=== PATIENT | female | born 1965 | race Caucasian/White ===

== ENCOUNTER → 2019-02-16 | Outpatient (CLI) | payer BC ==
[~2019-02-16] MED LIST: DIPH25TA29 PO; FAMO-119 PO; HYDR-3455 PO
--- NOTE | 2019-02-16 16:45 | Diagnostic Imaging Report ---
INDICATION: Pain and swelling. Three views were obtained. FINDINGS: The alignment is normal. There is no fracture or dislocation. The soft tissues are unremarkable. IMPRESSION: No acute fracture or dislocation. Dictated by: Dictated on workstation # [id number]
== END ==
LOC: RAD 16:21
PROVIDERS: ATTEND Nurse Practitioner Family
DX: M25.421 Effusion, right elbow (principal)
CPT/HCPCS: 73080

== ENCOUNTER → 2020-05-03 | Outpatient (CLI) | payer BC | LOC: CARD 14:54 | PROVIDERS: ATTEND Nurse Practitioner Family | DX: R07.9 Chest pain, unspecified (principal) | CPT/HCPCS: 93005 ==

== ENCOUNTER 2020-05-04 12:03 | Outpatient (RCR) | payer BC ==
[2020-05-17] MEDS ORDERED: ASPI-999 PO (10:13)
[2020-05-17] MEDS ORDERED: ASCO-262 PO (10:13)
[2020-05-17] MEDS ORDERED: NITR0.4T42 SL (10:13)
[2020-05-17] MEDS ORDERED: METO-351 PO (10:13)
== END 2020-08-02 | disposition home or self-care (01) ==
LOC: CARD 12:03
PROVIDERS: ATTEND Family Medicine
DX: R07.9 Chest pain, unspecified (principal); R00.2 Palpitations
CPT/HCPCS: 36415; 85379; 93225; 93226

== ENCOUNTER 2020-05-09 15:47 | Emergency (ER) | payer BC ==
[~2020-05-09] VITALS: Ht 167 cm; Wt 72.0 kg
[2020-05-09] MEDS ORDERED: LORazepam INJ 2 MG/ML (ATIVAN) VIAL IVP PRN (16:00)
[2020-05-09] MEDS ORDERED: ASPIRIN 81 MG CHEW (CHILDREN'S ASA) PO ONE (16:00)
--- NOTE | 2020-05-09 16:00 | ED Chest Pain ---
General Chief Complaint: Chest Pain Stated Complaint: CP Source: patient Exam Limitations: no limitations History of Present Illness Date Seen by Provider: May 09, 2020 Time Seen by Provider: 15:58 Initial Comments To ER with reports of chest pain. This is a left-sided chest tightness rated 3 out of 10 currently. This began while at rest at home. Her had a quadruple bypass and she believes she has a blockage in her heart. She saw her primary care who did an EKG and some outpatient labs. She states that her had normal labs prior to his bypass. She believes she needs a stress tests/cardiac catheterization. Timing/Duration: changing over time Severity/Quality: moderate Location: central Radiation: no radiation Activities at Onset: none ASA po ACCOUNTS RECEIVABLE COLLECTOR: No NTG SL ACCOUNTS RECEIVABLE COLLECTOR: No Associated Symptoms: No shortness of breath Allergies and Home Medications Allergies Coded Allergies: No Known Drug Allergies (Unverified , 06/03/15) Home Medications Diphenhydramine HCl 25 Mg Tablet, 50 MG PO ALLERGIES, (Reported) Famotidine 20 Mg Tablet, 20 MG PO BID Prescribed by: TABBY GOVEA on 08/07/16 1723 Patient Home Medication List Home Medication List Reviewed: Yes Review of Systems Review of Systems Constitutional: see HPI EENTM: No Symptoms Reported Respiratory: No Symptoms Reported Cardiovascular: See HPI, Chest Pain Gastrointestinal: See HPI Genitourinary: No Symptoms Reported Musculoskeletal: no symptoms reported Skin: no symptoms reported Psychiatric/Neurological: No Symptoms Reported Endocrine: No Symptoms Reported Hematologic/Lymphatic: No Symptoms Reported Past Tyuceaz-Mxhfur-Bdprhn Hx Patient Social History Recent Foreign Travel: No Contact w/Someone Who Travel: No Recent Hopitalizations: No Immunizations Up To Date Tetanus Booster (TDap): Unknown PED Vaccines UTD: No Seasonal Allergies Seasonal Allergies: Yes Past Medical History Abdominal, Gallbladder, Tubal Ligation Reproductive Disorders: No Sexually Transmitted Disease: No Fractures Family Medical History Heart Disease, Cancer, Diabetes, Hypertension Physical Exam Vital Signs Vital Signs - First Documented 05/09/20 15:51 Temp 37.1 Pulse 97 Resp 22 B/P (MAP) 142/67 (92) Pulse Ox 98 O2 Delivery Room Air Capillary Refill : Height, Weight, BMI Height: 5'6.00" Weight: 164lbs. 5.0oz. 74.353826fr; 25.0 BMI Method:Estimated General Appearance: No Apparent Distress, WD/WN, Anxious Respiratory: Lungs Clear, Normal Breath Sounds, No Accessory Muscle Use, No Respiratory Distress Cardiovascular: Regular Rate, Rhythm, Normal Peripheral Pulses Gastrointestinal: Non Tender, Soft Extremity: Normal Capillary Refill, Normal Inspection Neurologic/Psychiatric: Alert, Oriented x3 Skin: Normal Color, Warm/Dry Progress/Results/Core Measures Results/Orders Lab Results Laboratory Tests Test 05/09/20 16:00 05/09/20 17:55 Range/Units White Blood Count 6.6 4.3-11.0 10^3/uL Red Blood Count 4.85 4.35-5.85 10^6/uL Hemoglobin 14.9 11.5-16.0 G/DL Hematocrit 44 35-52 % Mean Corpuscular Volume 90 80-99 FL Mean Corpuscular Hemoglobin 31 25-34 PG Mean Corpuscular Hemoglobin Concent 34 32-36 G/DL Red Cell Distribution Width 13.1 10.0-14.5 % Platelet Count 291 130-400 10^3/uL Mean Platelet Volume 10.5 H 7.4-10.4 FL Neutrophils (%) (Auto) 49 42-75 % Lymphocytes (%) (Auto) 39 12-44 % Monocytes (%) (Auto) 9 0-12 % Eosinophils (%) (Auto) 3 0-10 % Basophils (%) (Auto) 1 0-10 % Neutrophils # (Auto) 3.3 1.8-7.8 X 10^3 Lymphocytes # (Auto) 2.6 1.0-4.0 X 10^3 Monocytes # (Auto) 0.6 0.0-1.0 X 10^3 Eosinophils # (Auto) 0.2 0.0-0.3 10^3/uL Basophils # (Auto) 0.0 0.0-0.1 10^3/uL Prothrombin Time 12.8 12.2-14.7 SEC INR Comment 0.9 0.8-1.4 Activated Partial Thromboplast Time 27 24-35 SEC D-Dimer <= 0.27 0.00-0.49 UG/ML Sodium Level 140 135-145 MMOL/L Potassium Level 3.5 L 3.6-5.0 MMOL/L Chloride Level 103 98-107 MMOL/L Carbon Dioxide Level 26 21-32 MMOL/L Anion Gap 11 5-14 MMOL/L Blood Urea Nitrogen 11 7-18 MG/DL Creatinine 0.70 0.60-1.30 MG/DL Estimat Glomerular Filtration Rate > 60 BUN/Creatinine Ratio 16 Glucose Level 102 70-105 MG/DL Calcium Level 9.4 8.5-10.1 MG/DL Corrected Calcium 8.5-10.1 MG/DL Magnesium Level 2.0 1.6-2.4 MG/DL Total Bilirubin 0.5 0.1-1.0 MG/DL Aspartate Amino Transf (AST/SGOT) 24 5-34 U/L Alanine Aminotransferase (ALT/SGPT) 26 0-55 U/L Alkaline Phosphatase 82 40-136 U/L Myoglobin 38.5 10.0-92.0 NG/ML Troponin I < 0.028 < 0.028 <0.028 NG/ML B-Type Natriuretic Peptide 13.1 <100.0 PG/ML Total Protein 7.8 6.4-8.2 GM/DL Albumin 4.6 H 3.2-4.5 GM/DL My Orders Orders - DONNIE AGUILLON MANUFACTURER REPRESENTATIVE Cbc With Automated Diff (05/09/20 15:49) Magnesium (05/09/20 15:49) Chest 1 View, Ap/Pa Only (05/09/20 15:49) Ekg Tracing (05/09/20 15:49) Comprehensive Metabolic Panel (05/09/20 15:49) Myoglobin Serum (05/09/20 15:49) Protime With Inr (05/09/20 15:49) Partial Thromboplastin Time (05/09/20 15:49) O2 (05/09/20 15:49) Monitor-Rhythm Ecg Trace Only (05/09/20 15:49) Lipid Panel (05/10/20 06:00) Ed Iv/Invasive Line Start (05/09/20 15:49) BNP (05/09/20 15:49) Troponin I (05/09/20 15:49) Aspirin Chewable Tablet (Baby Aspirin Ch (05/09/20 16:00) Lorazepam Injection (Ativan Injection) (05/09/20 16:00) Fibrin Degradation Products (05/09/20 16:00) Troponin I (05/09/20 18:00) Medications Given in ED Current Medications Medications Dose Ordered Sig/Radha Route Start Time Stop Time Status Last Admin Dose Admin Aspirin 324 mg ONCE ONCE PO 05/09/20 16:00 05/09/20 16:01 DC 05/09/20 16:08 324 MG Lorazepam 0.5 mg ONCE PRN IVP 05/09/20 16:00 05/09/20 16:08 0.5 MG Vital Signs/I&O 05/09/20 15:51 Temp 37.1 Pulse 97 Resp 22 B/P (MAP) 142/67 (92) Pulse Ox 98 O2 Delivery Room Air Departure Communication (Admissions) She states that she does have an appointment for a stress test this Saturday, 2 days from now. Impression Primary Impression: Chest pain Qualified Codes: R07.9 - Chest pain, unspecified Disposition: HOME, SELF-CARE Condition: Stable Departure-Patient Inst. Decision time for Depature: 18:32 Referrals: GILMAR CARRILLO MD FACP FACC CCDS Shivani CAMARGO MD, BASHAR J MD ORENDER, JACQUELINE S DO (PCP/Family) Primary Care Physician Patient Instructions: Chest Pain (DC) Add. Discharge Instructions: 1. Keep your appointment for the stress test on Saturday. Call one of the card iologist tomorrow to make an appointment to be seen for follow-up. Tell them you were seen in the emergency room tonight and were instructed to obtain follow-up preferably this week by whomever could see you soonest. All discharge instructions reviewed with patient and/or family. Voiced understanding. DONNIE AGUILLON APRN May 09, 2020 15:59
[2020-05-09 16:14] LABS: BASOPHILS % (AUTO) 1 % (0-10); EOSINOPHILS # (AUTO) 0.2 10^3/uL (0.0-0.3); EOSINOPHILS % (AUTO) 3 % (0-10); HEMATOCRIT 44 % (35-52); HEMOGLOBIN 14.9 G/DL (11.5-16.0); LYMPHOCYTES # (AUTO) 2.6 X 10^3 (1.0-4.0); LYMPHOCYTES % (AUTO) 39 % (12-44); MEAN CORPUSCULAR HEMOGLOBIN 31 PG (25-34); MEAN CORPUSCULAR HGB CONC 34 G/DL (32-36); MEAN CORPUSCULAR VOLUME 90 FL (80-99); MEAN PLATELET VOLUME 10.5 FL (7.4-10.4); MONOCYTES # (AUTO) 0.6 X 10^3 (0.0-1.0); MONOCYTES % (AUTO) 9 % (0-12); NEUTROPHILS # (AUTO) 3.3 X 10^3 (1.8-7.8); NEUTROPHILS % (AUTO) 49 % (42-75); PLATELET COUNT 291 10^3/uL (130-400); WHITE BLOOD COUNT 6.6 10^3/uL (4.3-11.0)
[2020-05-09 16:24] LABS: ALBUMIN 4.6 GM/DL (3.2-4.5)
[2020-05-09 16:25] LABS: CHLORIDE 103 MMOL/L (98-107); POTASSIUM 3.5 MMOL/L (3.6-5.0); SODIUM 140 MMOL/L (135-145)
[2020-05-09 16:26] LABS: CALCIUM 9.4 MG/DL (8.5-10.1)
[2020-05-09 16:27] LABS: GLUCOSE 102 MG/DL (70-105); TOTAL PROTEIN 7.8 GM/DL (6.4-8.2)
[2020-05-09 16:28] LABS: CARBON DIOXIDE 26 MMOL/L (21-32)
[2020-05-09 16:29] LABS: BILIRUBIN,TOTAL 0.5 MG/DL (0.1-1.0)
[2020-05-09 16:30] LABS: ALKALINE PHOSPHATASE 82 U/L (40-136)
[2020-05-09 16:31] LABS: GFR ESTIMATED > 60
[2020-05-09 16:32] LABS: BUN/CREATININE RATIO 16
[2020-05-09 16:33] LABS: ALANINE AMINOTRANSFERASE 26 U/L (0-55)
--- NOTE | 2020-05-09 16:37 | Diagnostic Imaging Report ---
INDICATION: Chest pain COMPARISON: 08/07/2016. FINDINGS: Single frontal view of the chest demonstrates normal heart size and pulmonary vascularity. The lungs are well aerated and clear. No large pleural effusion or pneumothorax is seen. The visualized osseous structures show no acute abnormalities. IMPRESSION: 1. No acute cardiopulmonary process. Dictated by: Dictated on workstation # [id number]
[2020-05-09 17:14] LABS: FIBRIN DEGRADATION PRODUCTS <= 0.27 UG/ML (0.00-0.49); INR 0.9 (0.8-1.4); PARTIAL THROMBOPLASTIN TIME 27 SEC (24-35); PROTHROMBIN TIME PATIENT 12.8 SEC (12.2-14.7)
[2020-05-09 18:39] VITALS: BP 122/70
== END 2020-05-09 18:39 | disposition home or self-care (01) ==
LOC: EDUNIT# 15:47 → ER 15:48
DX: R07.9 Chest pain, unspecified (principal); F41.9 Anxiety disorder, unspecified; Z82.49 Family history of ischemic heart disease and other diseases of the circulatory system; Z83.3 Family history of diabetes mellitus; Z80.9 Family history of malignant neoplasm, unspecified
CPT/HCPCS: 36415; 71045; 80053; 83735; 83874; 83880; 84484; 85025; 85379; 85610; 85730; 93005; 93041

== ENCOUNTER → 2020-05-11 | Outpatient (CLI) | payer BC | LOC: CARD 10:05 | PROVIDERS: ATTEND Family Medicine | DX: R07.9 Chest pain, unspecified (principal); R00.2 Palpitations | CPT/HCPCS: 93017 ==

== ENCOUNTER 2020-05-17 11:00 | Day surgery (SDC) | payer BC ==
[2020-05-17] VITALS (11 sets, daily range): BP systolic 110–130; BP diastolic 53–74
[~2020-05-17] VITALS: Ht 169 cm; Wt 73.6 kg
[2020-05-17 10:02] LABS: HEMOGLOBIN 13.7 g/dL (11.5-16.0); MEAN PLATELET VOLUME 10.4 fL (9.0-12.2); WHITE BLOOD COUNT 4.9 10^3/uL (4.3-11.0)
[2020-05-17 10:16] LABS: INR 0.9 (0.8-1.4); PROTHROMBIN TIME PATIENT 12.1 SEC (12.2-14.7)
[2020-05-17 10:24] LABS: ALANINE AMINOTRANSFERASE 21 U/L (0-55); ALBUMIN 4.2 GM/DL (3.2-4.5); ALKALINE PHOSPHATASE 68 U/L (40-136); BILIRUBIN,TOTAL 0.5 MG/DL (0.1-1.0); BUN/CREATININE RATIO 18; CALCIUM 8.9 MG/DL (8.5-10.1); CARBON DIOXIDE 27 MMOL/L (21-32); CHLORIDE 105 MMOL/L (98-107); CHOLESTEROL 238 MG/DL (< 200); CREATININE SERUM 0.74 MG/DL (0.60-1.30); GFR ESTIMATED > 60; GLUCOSE 88 MG/DL (70-105); HDL CHOLESTEROL 76 MG/DL (40-60); POTASSIUM 3.6 MMOL/L (3.6-5.0); SODIUM 141 MMOL/L (135-145); TRIGLYCERIDES 50 MG/DL (<150); VLDL CHOLESTEROL 10 MG/DL (5-40)
[~2020-05-17 11:00] MED LIST changes: +ASCO-262 PO; +ASPI-999 PO; +HEParin (CATH LAB) 2,000 ML IV ONE; +LIDOCAINE 1% INJ 20 ML 20 ML VIAL ONE; +METO-351 PO; +MIDAZOLAM 5 MG/5 ML (VERSED) VIAL ONE; +NITR0.4T42 SL; +NS IV 1000 ML 1,000 ML IV SCH; +NS IV 1000 ML 1,000 ML ONE; +fentaNYL INJECTION 100 MCG/2 ML AMP ONE
[2020-05-17] MEDS ORDERED: NS IV 1000 ML 1,000 ML IV SCH (11:22)
--- NOTE | 2020-05-17 11:22 | Cardiac Procedure Note-CS/ASA ---
Pre-Procedure Note Pre-Op Procedure Note H&P Reviewed The H&P was reviewed, patient examined and no changes noted. Date H&P Reviewed: May 17, 2020 Time H&P Reviewed: 10:50 Conscious Sedation Pre-Proced Time 10:50 ASA Score 3 For ASA 3 and 4: Consider anesthesia and medical clearance. Also, for patients with a history of failed moderate sedation consider anesthesia. Airway Lungs Heart ASA score ASA 1: a normal healthy patient ASA 2: a patient with a mild systemic disease (mid diabetes, controlled hypertension, obesity ASA 3: a patient with a severe systemic disease that limits activity (angina, COPD, prior Myocardial infarction) ASA 4: a patient with an incapacitating disease that is a constant threat to life (CHF, renal failure) ASA 5: a moribund patient not expected to survive 24 hrs. (ruptured aneurysm) ASA 6: a declared brain- patient whose organs are being harvested. For emergent operations, add the letter E after the classification Mallampati Classification Grade 2 Sedation Plan Analgesia, Amnesia, Plan communicated to team members, Discussed options with patient/fam, Discussed risks with patient/fam The patient is an appropriate candidate to undergo the planned procedure, sedation, and anesthesia. The patient immediately re-assessed prior to indication. GILMAR CARRILLO MD FACP FAC CCDS May 17, 2020 11:22
--- NOTE | 2020-05-17 11:27 | Discharge Inst-Cardiology ---
Discharge Inst-Cardiac Discharge Medications Continued Medications: Ascorbate Calcium (Vitamin C) 500 Mg Tablet 500 MG PO DAILY, TAB Diphenhydramine HCl (Diphenhydramine HCl) 25 Mg Tablet 25 MG PO ALLERGIES PRN for CONGESTION, TAB Discontinued Medications: Aspirin (Aspirin) 81 Mg Tab.chew 81 MG PO DAILY, TAB Metoprolol Succinate (Toprol Xl) 25 Mg Tab.er.24h 25 MG PO DAILY, TAB Nitroglycerin (Nitroglycerin) 0.4 Mg Tab.subl 0.4 MG SL, #24 GILMAR CHARLES MD FACP FACC CCDS May 17, 2020 11:27
--- NOTE | 2020-05-17 11:28 | Discharge Inst-Post CATH ---
Discharge Inst-CATH/EP Post Cardiac Cath/EP D/C Inst Follow Up/Plan F/u with Dr Hurd in 2 weeks ACTIVITY * Go Home directly and rest. * Limit activity of the leg (or wrist if it was used) for 7 days including aerobics, swimming, jogging, bicycling, etc. * Restrict stair-climbing for 7 days if possible, if not, climb up with your non-cath leg, then bring together on the same step. * Avoid lifting, pushing, pulling or excessive movement of the affected e xtremity for 7 days. * Customary sexual activity may be resumed after 2 days-use caution not to use a position that strains or causes pain to the affected extremity. * No driving for 24 hours. * NO SMOKING. * Avoid straining for bowel movements for 7 days. * Gentle walking on level ground is allowed. * Returning to work will depend on the type of procedure and the results. Your doctor will discuss this with you. CALL YOUR DOCTOR FOR ANY OF THE FOLLOWING: *If bleeding from the puncture site occurs- Apply gentle pressure to site with clean cloth and call your doctor or EMS. * If a knot or lump forms under the skin, increases in size, or causes pain. * If bruising appears to be worsening or moving further down your leg instead of disappearing. * Temperature above 101 F. CARE OF YOUR GROIN INCISION; * Bruising or purple discoloration of the skin near the puncture site is common. * You may shower only, no bathtub bathing for 5 days. Be careful to avoid slipping as your leg may feel stiff. * If a closure device was used on your femoral artery, please see the attached guide regarding care of the device and your leg. * Leave dressing on FOR 24 hours. CARE OF YOUR WRIST INCISION; * Bruising or purple discoloration of the skin near the puncture site is common. * You may shower. * DO NOT submerge wrist. * Leave dressing on FOR 24 hours. GILMAR HURD MD FACP FAC CCDS May 17, 2020 11:28
[2020-05-17] MEDS ORDERED: PATIENT MAY USE OWN MEDS, ALL PO SCH (11:30)
--- NOTE | 2020-05-17 12:32 | CARDIAC CATHETERIZATION ---
DATE OF SERVICE: 05/17/2020 CARDIAC CATHETERIZATION REPORT INDICATION FOR PROCEDURE: This is a 55-year-old lady, who has had new onset of chest discomfort and that is suggestive of angina. Symptoms are relieved with sublingual nitroglycerin after being brought on with exertion. Cardiac catheterization was carried out today after having obtained an informed consent. DESCRIPTION OF PROCEDURE: She was brought to the cardiac catheterization laboratory in a fasting state. Right groin was prepared and draped in the usual sterile fashion. Lidocaine 1% was used for local anesthesia. Modified Seldinger technique was used to advance a 5-Luxembourger sheath in the right femoral artery, 5-Luxembourger JL4 catheter for left coronary angiography, 5-Luxembourger JR4 catheter for right coronary angiography, 5-Luxembourger pigtail catheter was used for left heart catheterization and left ventricular angiography. Pigtail catheter was pulled back to the aortic root and aortic root angiography was performed. Pigtail was removed. Angiography of the right femoral artery was carried out through the sheath. Mynx was used to achieve hemostasis. She tolerated the procedure well. HEMODYNAMICS: Left ventricular end-diastolic pressure following coronary angiography was 14 mmHg. There was no significant pressure gradient on pullback across the aortic valve. Ascending aortic pressure was 107/65 with a mean of 83 mmHg. CORONARY ANGIOGRAPHY: Left main coronary artery, left anterior descending artery, left circumflex artery and right coronary artery do not exhibit angiographically significant disease. Right coronary artery is dominant. LEFT VENTRICULAR ANGIOGRAPHY: Left ventricular angiography was carried out in the [place] projection. Global left ventricular systolic function normal. No regional wall motion abnormality was seen in this view. Left ventricular ejection fraction is approximately 60%. AORTIC ROOT ANGIOGRAPHY: Aortic root angiography did not indicate any aortic root dissection or aneurysm. Coronary arteries were again seen and did not show significant disease. Aortic valve leaflets show good leaflet excursion. No significant aortic regurgitation is seen. CONCLUSIONS: 1. No angiographically significant coronary artery disease. 2. Normal global left ventricular systolic function. 3. Left ventricular end-diastolic pressure was 14 mmHg. DISCUSSION AND RECOMMENDATIONS: Based on the results of the study, chest discomfort does not appear to be of coronary origin. Continuing risk factor modification is advised. Outpatient followup is advised. Job ID: [id number] DocumentID: [id number] Dictated Date: 05/17/2020 11:32:51 Go Go Dancer Date: 05/17/2020 12:32:02 Dictated By: GILMAR CARRILLO MD, MA, FACP, FACC,
== END 2020-05-17 14:55 | disposition home or self-care (01) ==
LOC: CATH 11:00 → SDC 11:48 → CATH 14:55
PROVIDERS: ATTEND Internal Medicine Cardiovascular Disease
DX: R07.89 Other chest pain (principal); R00.2 Palpitations; Z82.49 Family history of ischemic heart disease and other diseases of the circulatory system; Z79.82 Long term (current) use of aspirin; Z79.899 Other long term (current) drug therapy; Z88.5 Allergy status to narcotic agent; Z11.2 Encounter for screening for other bacterial diseases
CPT/HCPCS: 80053; 80061; 85027; 85610; 85730; 87081; 93458; 93567; C1760; C1894; 36415

== ENCOUNTER → 2021-05-11 | Outpatient (CLI) | payer BC ==
[~2021-05-11] MED LIST changes: -HEParin (CATH LAB) 2,000 ML IV ONE; -LIDOCAINE 1% INJ 20 ML 20 ML VIAL ONE; -MIDAZOLAM 5 MG/5 ML (VERSED) VIAL ONE; -NS IV 1000 ML 1,000 ML IV SCH; -NS IV 1000 ML 1,000 ML ONE; -fentaNYL INJECTION 100 MCG/2 ML AMP ONE
[2021-05-11 09:53] LABS: BASOPHILS % (AUTO) 1 % (0-10); EOSINOPHILS # (AUTO) 0.2 10^3/uL (0.0-0.3); EOSINOPHILS % (AUTO) 5 % (0-10); HEMATOCRIT 45 % (35-52); HEMOGLOBIN 14.8 g/dL (11.5-16.0); LYMPHOCYTES # (AUTO) 1.5 10^3/uL (1.0-4.0); LYMPHOCYTES % (AUTO) 33 % (12-44); MEAN CORPUSCULAR HEMOGLOBIN 31 pg (25-34); MEAN CORPUSCULAR HGB CONC 33 g/dL (32-36); MEAN CORPUSCULAR VOLUME 94 fL (80-99); MEAN PLATELET VOLUME 10.3 fL (9.0-12.2); MONOCYTES # (AUTO) 0.5 10^3/uL (0.0-1.0); MONOCYTES % (AUTO) 11 % (0-12); NEUTROPHILS # (AUTO) 2.3 10^3/uL (1.8-7.8); NEUTROPHILS % (AUTO) 50 % (42-75); PLATELET COUNT 252 10^3/uL (130-400); WHITE BLOOD COUNT 4.6 10^3/uL (4.3-11.0)
[2021-05-11 10:31] LABS: BASOPHILS % (MANUAL) 1 %; EOSINOPHILS % (MANUAL) 4 %; LYMPHOCYTES % (MANUAL) 23 %; MONOCYTES % (MANUAL) 8 %; NEUTROPHILS % (MANUAL) 50 %; RBC MORPH NORMAL; REACTIVE LYMPHOCYTES 14 %
[2021-05-11 10:38] LABS: ALBUMIN 4.2 GM/DL (3.2-4.5); BILIRUBIN,TOTAL 0.5 MG/DL (0.1-1.0); CALCIUM 9.5 MG/DL (8.5-10.1); CREATININE SERUM 0.7 MG/DL (0.60-1.30); FREE T4 (FREE THYROXINE) 0.91 NG/DL (0.70-1.48); POTASSIUM 3.9 MMOL/L (3.6-5.0); TOTAL PROTEIN 7.3 GM/DL (6.4-8.2)
== END ==
LOC: LAB 09:32
PROVIDERS: ATTEND Family Medicine
DX: Z00.01 Encounter for general adult medical examination with abnormal findings (principal); Z82.49 Family history of ischemic heart disease and other diseases of the circulatory system
CPT/HCPCS: 36415; 80053; 80061; 84439; 84443; 85007; 85027; 86141

== ENCOUNTER → 2021-06-05 | Outpatient (CLI) | payer BC ==
--- NOTE | 2021-06-05 17:56 | Diagnostic Imaging Report ---
EXAM: Digital mammogram bilateral screening COMPARISON: This study was compared to the prior exam of 10/05/2015. At this time there are no current complaints. The current study was also evaluated with a Computer Aided Detection (CAD) system. FINDINGS: The fibroglandular tissue in both breasts is heterogeneously dense. This does limit the sensitivity of this exam. Overall, there does not appear to have been any significant change when compared to the prior study. No primary or secondary sign of malignancy is noted. IMPRESSION: 1. There is no radiographic evidence for malignancy. 2. The patient should have her annual bilateral screening mammogram on schedule in May of 2022. ACR category 1 ACR BI-RADS Category 1: Negative. Result letter will be mailed to the patient. Note: At least 10% of breast cancer is not imaged by mammography. Dictated by: Dictated on workstation # [id number]
== END ==
LOC: RAD 15:15
PROVIDERS: ATTEND Family Medicine
DX: Z12.31 Encounter for screening mammogram for malignant neoplasm of breast (principal)
CPT/HCPCS: 77063; 77067

== ENCOUNTER 2022-03-05 21:41 | Emergency (ER) | payer BC ==
[~2022-03-05] VITALS: Ht 170.1 cm; Wt 77.1 kg
[2022-03-05] MEDS ORDERED: morphine INJ 10 MG/ML 1ML (SYR OR VIAL) IVP STA (21:56)
[2022-03-05] MEDS ORDERED: KETOROLAC 30 MG/ML VIAL IVP ONE (22:00)
[2022-03-05] MEDS ORDERED: fentaNYL INJ 100 MCG/2 ML AMP IVP ONE ×2 (22:30→23:45)
[2022-03-05] MEDS ORDERED: RX-OXYCODONE/APAP 5-325 MG #4 TAB PK PO PRN (23:45)
[2022-03-05] MEDS ORDERED: BACITRACIN OINTMENT 28 GM TUBE ONE (23:48)
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
[2022-03-06] MEDS ORDERED: RX-OXYCODONE/APAP 5-325 MG #4 TAB PK PO PRN (01:00)
[2022-03-06] MEDS ORDERED: PROMETHAZINE INJ 25 MG/ML (PHENERGAN) AMP IVP ONE (01:00)
[2022-03-06] MEDS ORDERED: OXYC1TAB87 PO (01:01)
[2022-03-06 01:13] VITALS: BP 142/79
[2022-03-06] MEDS ORDERED: BACITRACIN OINTMENT 28 GM TUBE TOP SCH (09:00)
== END 2022-03-06 01:13 | disposition home or self-care (01) ==
LOC: EDUNIT# 21:41 → ER 21:42
DX: T23.201A Burn of second degree of right hand, unspecified site, initial encounter (principal); T23.202A Burn of second degree of left hand, unspecified site, initial encounter; T23.231A Burn of second degree of multiple right fingers (nail), not including thumb, initial encounter; Z28.310 Unvaccinated for COVID-19; X10.1XXA Contact with hot food, initial encounter; X19.XXXA Contact with other heat and hot substances, initial encounter

== ENCOUNTER → 2022-05-29 | Outpatient (CLI) | payer BC ==
[~2022-05-29] MED LIST changes: +OXYC1TAB87 PO
--- NOTE | 2022-05-29 13:27 | Diagnostic Imaging Report ---
INDICATION: CELLULITIS OF LEFT LOWER LIMB TECHNIQUE: Multiple real-time grayscale images were obtained over the left lower extremity in various projections, bilaterally. Additional duplex Doppler and color Doppler images were also obtained. CORRELATION STUDY: None FINDINGS: Color and grayscale sonographic images demonstrate no intraluminal defect within the visualized portion of the common femoral, superficial femoral and/or popliteal veins to suggest thrombus formation. These vessels demonstrate normal response to compression and augmentation. No soft tissue fluid collection. IMPRESSION: 1. Negative for deep venous thrombosis of the left leg. Dictated by: Dictated on workstation # [id number]
== END ==
LOC: RAD 12:24
PROVIDERS: ATTEND Registered Nurse Critical Care Medicine
DX: L03.116 Cellulitis of left lower limb (principal); G43.909 Migraine, unspecified, not intractable, without status migrainosus; J45.31 Mild persistent asthma with (acute) exacerbation; J45.998 Other asthma; M79.89 Other specified soft tissue disorders

== ENCOUNTER 2022-06-06 04:49 | Emergency (ER) | payer BC ==
[~2022-06-06] VITALS: Ht 167 cm; Wt 77.1 kg
--- NOTE | 2022-06-06 04:59 | ED General ---
General Stated Complaint: FEVER,MARION,NAUSEA History of Present Illness Date Seen by Provider: Jun 06, 2022 Time Seen by Provider: 04:58 Initial Comments 57-year-old female with no significant PMH except for cholecystectomy, is here with complaints of diffuse abdominal pain, fever and chills, and nausea and vomiting for the past 3 days. No known sick contacts. Denies diarrhea, chest pain, palpitations, SOB, respiratory symptoms. Patient has not been able to tolerate oral intake. (ABDIFATAH MUÑOZ MD) Allergies and Home Medications Allergies Coded Allergies: codeine (Verified Allergy, Mild, Hives, 05/17/20) Patient Home Medication List Home Medication List Reviewed: Yes (ABDIFATAH MUÑOZ MD) Duloxetine HCl (Duloxetine HCl) 30 Mg Capsule., (Reported) Entered as Reported by: JESSY JERNIGAN on 06/06/22500 Last Action: New Order [Smz-Tmp] , (Reported) Entered as Reported by: JESSY JERNIGAN on 06/06/22500 Last Action: New Order Discontinued Medications Ascorbate Calcium (Vitamin C) 500 Mg Tablet, 500 MG PO DAILY, (Reported) Discontinued Reason: No Longer Taking Entered as Reported by: CORNELIUS QUINTANA on 05/17/20 1013 Last Action: Discontinued Diphenhydramine HCl (Diphenhydramine HCl) 25 Mg Tablet, 25 MG PO ALLERGIES PRN for CONGESTION, (Reported) Discontinued Reason: No Longer Taking Entered as Reported by: NOEL TAMEZ on 08/07/16 0925 Last Action: Discontinued Oxycodone HCl/Acetaminophen (Percocet 5-325 mg Tablet) 1 Each Tablet, 1-2 TAB PO Q4H PRN for PAIN-BREAKTHROUGH Discontinued Reason: No Longer Taking Prescribed by: PADMINI ROJAS on 03/06/22 010 Last Action: Discontinued Review of Systems Review of Systems Constitutional: chills, fever EENTM: no symptoms reported Respiratory: no symptoms reported Cardiovascular: no symptoms reported Gastrointestinal: abdominal pain, loss of appetite, nausea, vomiting Genitourinary: no symptoms reported Musculoskeletal: no symptoms reported Skin: no symptoms reported Psychiatric/Neurological: No Symptoms Reported Hematologic/Lymphatic: No Symptoms Reported Immunological/Allergic: no symptoms reported (ABDIFATAH MUÑOZ MD) Past Ypmeado-Rxzhvz-Yudyns Hx Immunizations Up To Date Tetanus Booster (TDap): Unknown PED Vaccines UTD: No (ABDIFATAH MUÑOZ MD) Seasonal Allergies Seasonal Allergies: Yes (ABDIFATAH MUÑOZ MD) Past Medical History Surgeries: Yes (urethral dilation) Abdominal, Gallbladder, Tubal Ligation Respiratory: Yes Asthma Currently Using CPAP: No Cardiac: Yes (large varicosity over the right knee) Neurological: No Reproductive Disorders: No Sexually Transmitted Disease: No Genitourinary: No Gastrointestinal: No Musculoskeletal: Yes Fractures Endocrine: No HEENT: No Cancer: No Psychosocial: No Integumentary: No Blood Disorders: No (ABDIFATAH MUÑOZ MD) Family Medical History Heart Disease, Cancer, Diabetes, Hypertension (ABDIFATAH MUÑOZ MD) Physical Exam Vital Signs Vital Signs - First Documented 06/06/22 04:56 Temp 36.8 Pulse 67 Resp 18 B/P (MAP) 162/97 (118) Pulse Ox 98 O2 Delivery Room Air (ELLA MANNING MD) Vital Signs Capillary Refill : (ABDIFATAH MUÑOZ MD) Height, Weight, BMI Height: 5'6.00" Weight: 164lbs. 5.0oz. 74.675021ib; 26.00 BMI Method:Estimated General Appearance: Mild Distress HEENT: PERRL/EOMI, Normal ENT Inspection Neck: Full Range of Motion, Normal Inspection, Non Tender, Supple Respiratory: Lungs Clear, Normal Breath Sounds Cardiovascular: Regular Rate, Rhythm Gastrointestinal: Normal Bowel Sounds, No Organomegaly, Soft, Tenderness (Diffuse abdominal tenderness) Back: Normal Inspection, No CVA Tenderness Neurologic/Psychiatric: Alert, Oriented x3 Skin: Cool, Other (dry mucous membranes and mild tenting of skin) Lymphatic: No Adenopathy (ABDIFATAH MUÑOZ MD) Focused Exam Sepsis Stage: Severe Sepsis Possible Source: GI Tract/Intra-Abdominal Lactate Level 06/06/22 05:37: Lactic Acid Level 3.86*H 06/06/22 07:26: Lactic Acid Level 3.31*H (ELLA MANNING MD) Time of Focused Exam: 06:22 Respiratory: Lungs Clear, Normal Breath Sounds, No Accessory Muscle Use, No Respiratory Distress Cardiovascular: Regular Rate, Rhythm Capillary Refill: Less Than 3 Seconds Peripheral Pulses: 1+ Radial Pulses (R), 1+ Radial Pulses (L) Skin: cool, pallor Lactic Acid Level Laboratory Tests Test 06/06/22 05:37 06/06/22 07:26 Lactic Acid Level 3.86 MMOL/L (0.50-2.00) *H 3.31 MMOL/L (0.50-2.00) *H (ELLA MANNING MD) Within 3hrs of presentation: Admin fluids, Admin 30ml/kg IBW due to BMI>30, Blood cultures prior to ABX's, Focus exam, Lactate level (ELLA MANNING MD) Progress/Results/Core Measures Suspected Sepsis SIRS Temperature: Pulse: Respiratory Rate: Laboratory Tests 06/06/22 05:00: White Blood Count 20.0H Blood Pressure / Mean: Laboratory Tests 06/06/22 05:00: Creatinine 0.80, Platelet Count 266, Total Bilirubin 0.6 (ABDIFATAH MUÑOZ MD) Results/Orders Lab Results Laboratory Tests Test 06/06/22 05:00 06/06/22 05:01 06/06/22 05:25 06/06/22 05:37 Range/Units White Blood Count 20.0 H 4.3-11.0 10^3/uL Red Blood Count 4.67 3.80-5.11 10^6/uL Hemoglobin 14.4 11.5-16.0 g/dL Hematocrit 42 35-52 % Mean Corpuscular Volume 90 80-99 fL Mean Corpuscular Hemoglobin 31 25-34 pg Mean Corpuscular Hemoglobin Concent 34 32-36 g/dL Red Cell Distribution Width 12.6 10.0-14.5 % Platelet Count 266 130-400 10^3/uL Mean Platelet Volume 10.6 9.0-12.2 fL Immature Granulocyte % (Auto) 1 % Neutrophils (%) (Auto) 73 42-75 % Lymphocytes (%) (Auto) 19 12-44 % Monocytes (%) (Auto) 7 0-12 % Eosinophils (%) (Auto) 0 0-10 % Basophils (%) (Auto) 0 0-10 % Neutrophils # (Auto) 14.7 H 1.8-7.8 10^3/uL Lymphocytes # (Auto) 3.8 1.0-4.0 10^3/uL Monocytes # (Auto) 1.3 H 0.0-1.0 10^3/uL Eosinophils # (Auto) 0.0 0.0-0.3 10^3/uL Basophils # (Auto) 0.1 0.0-0.1 10^3/uL Immature Granulocyte # (Auto) 0.1 0.0-0.1 10^3/uL Neutrophils % (Manual) 77 % Lymphocytes % (Manual) 17 % Monocytes % (Manual) 6 % Blood Morphology Comment NORMAL Sodium Level 131 L 135-145 MMOL/L Potassium Level 3.8 3.6-5.0 MMOL/L Chloride Level 94 L 98-107 MMOL/L Carbon Dioxide Level 25 21-32 MMOL/L Anion Gap 12 5-14 MMOL/L Blood Urea Nitrogen 11 7-18 MG/DL Creatinine 0.80 0.60-1.30 MG/DL Estimat Glomerular Filtration Rate 86 BUN/Creatinine Ratio 14 Glucose Level 208 H 70-105 MG/DL Calcium Level 10.0 8.5-10.1 MG/DL Corrected Calcium 9.8 8.5-10.1 MG/DL Magnesium Level 2.1 1.6-2.4 MG/DL Total Bilirubin 0.6 0.1-1.0 MG/DL Aspartate Amino Transf (AST/SGOT) 29 5-34 U/L Alanine Aminotransferase (ALT/SGPT) 39 0-55 U/L Alkaline Phosphatase 82 40-136 U/L Total Protein 7.6 6.4-8.2 GM/DL Albumin 4.3 3.2-4.5 GM/DL Lipase 46 8-78 U/L Influenza Type A (RT-PCR) Not Detected Not Detecte Influenza Type B (RT-PCR) Not Detected Not Detecte SARS-CoV-2 RNA (RT-PCR) Not Detected Not Detecte Urine Color YELLOW Urine Clarity SL CLOUDY Urine pH 6.0 5-9 Urine Specific [place] >=1.030 1.016-1.022 Urine Protein 1+ H NEGATIVE Urine Glucose (UA) NEGATIVE NEGATIVE Urine Ketones 1+ H NEGATIVE Urine Nitrite NEGATIVE NEGATIVE Urine Bilirubin NEGATIVE NEGATIVE Urine Urobilinogen 1.0 < = 1.0 MG/DL Urine Leukocyte Esterase NEGATIVE NEGATIVE Urine RBC (Auto) NEGATIVE NEGATIVE Urine RBC NONE /HPF Urine WBC NONE /HPF Urine Squamous Epithelial Cells 0-2 /HPF Urine Crystals NONE /LPF Urine Bacteria NEGATIVE /HPF Urine Casts PRESENT /LPF Urine Hyaline Casts 0-2 H /LPF Urine Mucus LARGE H /LPF Urine Culture Indicated NO Urine Opiates Screen NEGATIVE NEGATIVE Urine Oxycodone Screen NEGATIVE NEGATIVE Urine Methadone Screen NEGATIVE NEGATIVE Urine Propoxyphene Screen NEGATIVE NEGATIVE Urine Barbiturates Screen NEGATIVE NEGATIVE Ur Tricyclic Antidepressants Screen NEGATIVE NEGATIVE Urine Phencyclidine Screen NEGATIVE NEGATIVE Urine Amphetamines Screen NEGATIVE NEGATIVE Urine Methamphetamines Screen NEGATIVE NEGATIVE Urine Benzodiazepines Screen NEGATIVE NEGATIVE Urine Cocaine Screen NEGATIVE NEGATIVE Urine Cannabinoids Screen NEGATIVE NEGATIVE Lactic Acid Level 3.86 *H 0.50-2.00 MMOL/L Test 06/06/22 07:26 Range/Units Lactic Acid Level 3.31 *H 0.50-2.00 MMOL/L (ELLA MANNING MD) My Orders Orders - ELLA MANNING MD Ns Iv 1000 Ml (Sodium Chloride 0.9%) (06/06/22 06:30) Fentanyl Inj (Sublimaze Injection) (06/06/22 06:30) Piperacillin Sodium/Tazobactam (Zosyn Vi (06/06/22 07:00) Type And Screen (06/06/22 07:05) Iohexol Injection (Omnipaque 350 Mg/Ml 1 (06/06/22 07:15) Received Contrast (Hold Metformin- Contr (06/06/22 07:15) Ns (Ivpb) (Sodium Chloride 0.9% Ivpb Bag (06/06/22 07:15) Catheter(Urinary) Insert & Ass 03,15 (06/06/22 07:52) Lidocaine 2% (Urojet) (Xylocaine Urojet) (06/06/22 08:00) (ELLA MANNING MD) Medications Given in ED Current Medications Medications Dose Ordered Sig/Radha Route Start Time Stop Time Status Last Admin Dose Admin Fentanyl Citrate 50 mcg ONCE ONCE IVP 06/06/22 05:45 06/06/22 05:46 DC 06/06/22 05:44 50 MCG Fentanyl Citrate 50 mcg ONCE ONCE IVP 06/06/22 06:30 06/06/22 06:31 DC 06/06/22 06:35 50 MCG Iohexol 100 ml ONCE ONCE IV 06/06/22 07:15 06/06/22 07:25 DC 06/06/22 07:10 80 ML Ondansetron HCl 4 mg ONCE ONCE IVP 06/06/22 05:15 06/06/22 05:16 DC 06/06/22 05:09 4 MG Piperacillin Sod/ Tazobactam Sod 4.5 gm/Sodium Chloride 100 ml @ 200 mls/hr ONCE ONCE IV 06/06/22 07:00 06/06/22 07:29 DC 06/06/22 07:20 200 MLS/HR Sodium Chloride 100 ml ONCE ONCE IV 06/06/22 07:15 06/06/22 07:25 DC 06/06/22 07:10 80 ML (ELLA MANNING MD) Vital Signs/I&O 06/06/22 04:56 Temp 36.8 Pulse 67 Resp 18 B/P (MAP) 162/97 (118) Pulse Ox 98 O2 Delivery Room Air (ELLA MANNING MD) Vital Signs/I&O Capillary Refill : (ABDIFATAH MUÑOZ MD) Progress Note : Progress Note 1. ABDOMINAL PAIN: - CT ABD & PELVIS: - CBC: Elevated WBC: 20 with a left shift - Lactic acid: - Lipase negative - Blood cultures sent - COVID test/ Rapid Flu Test - Zofran 4mg iv/ Toradol 15mg iv/ Fentanyl 50mcg iv 2. DEHYDRATION DUE TO GI LOSS/ MILD HYPONATREMIA: - CMP unremarkable except for mild hyponatremia - NS IVF bolus - Will sign out pt to Dr Manning for follow up of imaging and remaining labs (ABDIFATAH MUÑOZ MD) Progress Note #1: Time: 06:23 Progress Note Patient care assumed at shift change. 57-year-old female who presents to the emergency room with less than 24 hours of severe diffuse abdominal pain, nausea vomiting. Started feeling sick 2 days ago. Pain started last night. She had a normal bowel movement this morning. Nonblack nonbloody. No dysuria, urgency or frequency. She states she has vomited multiple times and has had dry heaving. She had previous cholecystectomy 5 years ago. She is not currently having menstrual cycles. She has received normal saline, Toradol, Zofran and fentanyl. Initial blood pressure at my evaluation in the upper 80s mid 90s systolic. She is not tachycardic. Resting comfortably on her left side although complains of significant pain. Gen: alert and oriented; BP soft with systolic in the 80-90's CV: RR Chest: no resp distress Abdomen: DISTENDED, HYPOACTIVE BS; diffusely tender with involuntary guarding Ext: MAEW Skin: pale Assessment: likely perforated viscous or other surgical pathology. she has a significant leukocytosis; chem WNL with slightly elevated glucose' significant lactic acidosis Plan: further fluid boluses, more pain control and to CT to delineate pathology Progress Note #2: Time: 07:45 Progress Note 0720 spoke with Radiologist - Dr Hernandez with [facility] - large pseudoaneurysmal bleed in the abdomen, likely from gastroduodenal artery; extensive retroperitoneal hemmorhage with 15 x 8 x 17cm hematoma; intraperitoneal blood Called off our team, in favor of transfer to where they have IR ca pabilities/vascular specialty available; Patient's current BP 109 systolic; HR 80's. Patient is somewhat pale, but alert and oriented. Type and screen ordered. Will likely need to give 1u PRBC prior to transport due to hemorrhagic shock (BP had been in the 80's sys). I spoke with the patient and her . She consents to transfer. [facility] on standby, Awaiting call back from for final acceptance. (ELLA MANNING MD) Diagnostic Imaging Diagonstic Imaging: CT Plain Films/CT/US/NM/MRI: abdomen (ABDIFATAH MUÑOZ MD) Diagonstic Imaging: CT Comments NAME: CAD[facility] REC#: [id number] PT STATUS: REG ER : 1965 PHYSICIAN: ABDIFATAH MUÑOZ MD ADMIT DATE: 06/06/22/ER Draft Date of Exam:06/06/22 CT ABDOMEN/PELVIS W PROCEDURE: CT abdomen and pelvis with contrast. TECHNIQUE: Multiple contiguous axial images were obtained through the abdomen and pelvis after administration of intravenous contrast. Auto Exposure Controls were utilized during the CT exam to meet ALARA standards for radiation dose reduction. All CT scans use one or more of the following dose optimizing techniques: automated exposure control, MA and/or KvP adjustment based on patient size and exam type or iterative reconstruction. INDICATION: Abdominal pain. No priors. FINDINGS: There is presumed hemorrhagic infiltration along the retroperitoneal and mesenteric midline fat, within the epicenter. There is a bilobed arterial enhancing structure believed to be presumed pseudoaneurysm measuring 1.4 cm in axial plane by 2 cm cephalocaudal best seen on axial image 75 and coronal image 35. This is likely but inconclusively off the gastroduodenal but could be jejunal branch off the SMA. There is no gastric outlet obstruction. The proximal duodenum is dilated, distorted and effaced by the presumed hematoma this mass effect but no outlet obstruction. The pancreatic neck body and tail unremarkable. The head, however is somewhat thickened as well as distorted by the adjacent blood product. Findings suspicious for hemorrhage from partially ruptured pseudoaneurysm in the setting of either peptic ulcer disease or pancreatitis suspected. There is only a small amount of pelvic intraperitoneal free fluid. The suspected hematoma in aggregate measures roughly 14 x 8 cm in axial plane and extends 17 cm cephalocaudal. The aorta is unremarkable. The celiac and proximal SMA unremarkable. No thrombus. There are few noninflamed diverticula of the sigmoid colon. There is no ileus or bowel obstruction. Unobstructed kidneys normal. Perihepatic and perisplenic free fluid likely hemoperitoneum noted. There are few scattered low-density hepatic foci believed cystic. Adrenal glands unremarkable. IMPRESSION: 1. Very large central abdominal predominantly retroperitoneal hemorrhage with a small amount of hemoperitoneum. Central within this hematoma is a bilobed irregular pseudoaneurysm presumed incompletely contained arterial source unclear but likely the gastroduodenal but may also be off a jejunal branch of the SMA. No outlet obstruction, however there is thickening, irregularity and distortion of the proximal duodenum and this may be the source of the primary pathology. The pancreatic head at the epicenter of the process as well and sequelae of pancreatitis could not be excluded. 2. Critical findings relayed by phone to the Emergency Room at time of dictation. Dictated on workstation # [id number] Dict: 06/06/22 0714 Trans: 06/06/22 0749 [id number] Interpreted by: ROB HERNANDEZ Electronically signed by: (ELLA MANNING MD) Critical Care Note Critical Care Start Time: 06:25 Total Time (minutes) 60min critical care time in the eval and management of this patient with an acute abdomen - evidence of active bleeding in the abdomen, management of hemorrhagic shock, fluid and blood replacement, continuous monitoring, discussion with our surgeon, discussion with radiologist; review and interpretation of labs/imaging; discussion with [facility] and discussion with patient and family (ELLA MANNING MD) Departure Impression Primary Impression: Hemorrhagic shock Additional Impression: Intra abdominal hemorrhage Disposition: XFER SHT-TRM HOSP Condition: Critical Transfer Transfer Reason: Exceeds level of care Time Spoke to Accepting Phy: 07:58 Transfer Progress Notes Accepted by Dr Gab Burgess; to the SICU - [facility] bed "[facility]" Transfer Facility: [facility] Method of Transfer: Air (ELLA MANNING MD) Departure-Patient Inst. Referrals: TABBY GOVEA DO (PCP/Family) Primary Care Physician Copy Copies To 1: TABBY GOVEA SNEHA L MD Jun 06, 2022 04:59 ELLA MANNING MD Jun 06, 2022 06:27
[2022-06-06] MEDS ORDERED: DULO30CA49 (05:01)
[2022-06-06] MEDS ORDERED: SMZ-TMP (05:01)
[2022-06-06] MEDS ORDERED: KETOROLAC 30 MG/ML VIAL IVP STA (05:11)
[2022-06-06 05:13] LABS: BASOPHILS # (AUTO) 0.1 10^3/uL (0.0-0.1); BASOPHILS % (AUTO) 0 % (0-10); EOSINOPHILS % (AUTO) 0 % (0-10); HEMATOCRIT 42 % (35-52); HEMOGLOBIN 14.4 g/dL (11.5-16.0); LYMPHOCYTES # (AUTO) 3.8 10^3/uL (1.0-4.0); LYMPHOCYTES % (AUTO) 19 % (12-44); MEAN CORPUSCULAR HEMOGLOBIN 31 pg (25-34); MEAN CORPUSCULAR HGB CONC 34 g/dL (32-36); MEAN CORPUSCULAR VOLUME 90 fL (80-99); MEAN PLATELET VOLUME 10.6 fL (9.0-12.2); MONOCYTES # (AUTO) 1.3 10^3/uL (0.0-1.0); MONOCYTES % (AUTO) 7 % (0-12); NEUTROPHILS # (AUTO) 14.7 10^3/uL (1.8-7.8); NEUTROPHILS % (AUTO) 73 % (42-75); PLATELET COUNT 266 10^3/uL (130-400)
[2022-06-06] MEDS ORDERED: NS IV 1000 ML 1,000 ML IV SCH (05:15)
[2022-06-06] MEDS ORDERED: ONDANSETRON 4 MG/2 ML (SDV) Z0FRAN IVP ONE (05:15)
[2022-06-06 05:20] LABS: ALBUMIN 4.3 GM/DL (3.2-4.5)
[2022-06-06 05:21] LABS: POTASSIUM 3.8 MMOL/L (3.6-5.0)
[2022-06-06 05:23] LABS: TOTAL PROTEIN 7.6 GM/DL (6.4-8.2)
[2022-06-06 05:25] LABS: BILIRUBIN,TOTAL 0.6 MG/DL (0.1-1.0)
[2022-06-06 05:27] LABS: CREATININE SERUM 0.8 MG/DL (0.60-1.30)
[2022-06-06 05:29] LABS: MAGNESIUM 2.1 MG/DL (1.6-2.4)
[2022-06-06 05:45] LABS: BILIRUBIN,URINE NEGATIVE (NEGATIVE); CLARITY,URINE SL CLOUDY; COLOR,URINE YELLOW; GLUCOSE, URINE (UA) NEGATIVE (NEGATIVE); KETONES,URINE 1+ (NEGATIVE); LEUKOCYTE ESTERASE ,URINE NEGATIVE (NEGATIVE); NITRITE,URINE NEGATIVE (NEGATIVE); PROTEIN,URINE 1+ (NEGATIVE)
[2022-06-06] MEDS ORDERED: fentaNYL INJ 100 MCG/2 ML AMP IVP ONE ×2 (05:45→06:30)
[2022-06-06 05:58] LABS: AMPHETAMINE SCREEN, URINE NEGATIVE (NEGATIVE); BARBITURATE SCREEN URINE NEGATIVE (NEGATIVE); BENZODIAZEPINES SCREEN URINE NEGATIVE (NEGATIVE); CANNABINOID SCREEN, URINE NEGATIVE (NEGATIVE); COCAINE SCREEN URINE NEGATIVE (NEGATIVE); METHADONE STAT NEGATIVE (NEGATIVE); OPIATE SCREEN URINE NEGATIVE (NEGATIVE); OXYCODONE STAT NEGATIVE (NEGATIVE); PROPOXYPHENE STAT NEGATIVE (NEGATIVE); TRICYCLIC ANTIDEPRESSANTS SCRE NEGATIVE (NEGATIVE)
[2022-06-06 06:23] LABS: BACTERIA,URINE NEGATIVE /HPF; HYALINE CASTS, URINE 0-2 /LPF; SQUAMOUS EPITHELIAL CELL,UR 0-2 /HPF
[2022-06-06] MEDS: NS IV 1000 ML 1,000 ML IV SCH ×2 (06:35→07:20)
[2022-06-06] MEDS ORDERED: PIPERACILLIN SODIUM/TAZOBACTAM 4.5 GM in NS (IVPB) 100 ML IV ONE (07:00)
[2022-06-06 07:03] LABS: LYMPHOCYTES % (MANUAL) 17 %; MONOCYTES % (MANUAL) 6 %; NEUTROPHILS % (MANUAL) 77 %; RBC MORPH NORMAL
[2022-06-06] MEDS ORDERED: IOHEXOL 350 MG/ML 100 ML (OMNIPAQUE 350) VIAL IV ONE (07:15)
[2022-06-06] MEDS ORDERED: NS 100 ML (IVPB) BAG IV ONE (07:15)
[2022-06-06] MEDS ORDERED: HOLD METFORMIN - RECEIVED CONTRAST 20 ML VIAL IV SCH (07:15)
--- NOTE | 2022-06-06 07:51 | Diagnostic Imaging Report ---
PROCEDURE: CT abdomen and pelvis with contrast. TECHNIQUE: Multiple contiguous axial images were obtained through the abdomen and pelvis after administration of intravenous contrast. Auto Exposure Controls were utilized during the CT exam to meet ALARA standards for radiation dose reduction. All CT scans use one or more of the following dose optimizing techniques: automated exposure control, MA and/or KvP adjustment based on patient size and exam type or iterative reconstruction. INDICATION: Abdominal pain. No priors. FINDINGS: There is presumed hemorrhagic infiltration along the retroperitoneal and mesenteric midline fat, within the epicenter. There is a bilobed arterial enhancing structure believed to be presumed pseudoaneurysm measuring 1.4 cm in axial plane by 2 cm cephalocaudal best seen on axial image 75 and coronal image 35. This is likely but inconclusively off the gastroduodenal but could be jejunal branch off the SMA. There is no gastric outlet obstruction. The proximal duodenum is dilated, distorted and effaced by the presumed hematoma this mass effect but no outlet obstruction. The pancreatic neck body and tail unremarkable. The head, however is somewhat thickened as well as distorted by the adjacent blood product. Findings suspicious for hemorrhage from partially ruptured pseudoaneurysm in the setting of either peptic ulcer disease or pancreatitis suspected. There is only a small amount of pelvic intraperitoneal free fluid. The suspected hematoma in aggregate measures roughly 14 x 8 cm in axial plane and extends 17 cm cephalocaudal. The aorta is unremarkable. The celiac and proximal SMA unremarkable. No thrombus. There are few noninflamed diverticula of the sigmoid colon. There is no ileus or bowel obstruction. Unobstructed kidneys normal. Perihepatic and perisplenic free fluid likely hemoperitoneum noted. There are few scattered low-density hepatic foci believed cystic. Adrenal glands unremarkable. IMPRESSION: 1. Very large central abdominal predominantly retroperitoneal hemorrhage with a small amount of hemoperitoneum. Central within this hematoma is a bilobed irregular pseudoaneurysm presumed incompletely contained arterial source unclear but likely the gastroduodenal but may also be off a jejunal branch of the SMA. No outlet obstruction, however there is thickening, irregularity and distortion of the proximal duodenum and this may be the source of the primary pathology. The pancreatic head at the epicenter of the process as well and sequelae of pancreatitis could not be excluded. 2. Critical findings relayed by phone to the Emergency Room at time of dictation. Dictated by: Dictated on workstation # [id number]
[2022-06-06] MEDS ORDERED: LIDOCAINE UROJET 2% GEL 10 ML PKG TOP ONE (08:00)
[2022-06-06] MEDS ORDERED: NS IV 500 ML 500 ML IV STA (08:18)
[2022-06-06 08:25] VITALS: BP 100/57
[2022-06-06 08:44] VITALS: BP 96/62
== END 2022-06-06 08:44 | disposition short-term general hospital (02) ==
LOC: EDUNIT# 04:49 → ER 04:54
DX: R57.8 Other shock (principal); R58 Hemorrhage, not elsewhere classified; R11.2 Nausea with vomiting, unspecified; E87.20 Acidosis, unspecified; D72.829 Elevated white blood cell count, unspecified; R73.9 Hyperglycemia, unspecified; Z90.49 Acquired absence of other specified parts of digestive tract; Z20.822 Contact with and (suspected) exposure to COVID-19; Z28.310 Unvaccinated for COVID-19
CPT/HCPCS: 51702; 74177; 80053; 80306; 81000; 83605; 83690; 83735; 85007; 85027; 86850; 86900; 86901; 86920; 87040; 87636; 99285; P9016; 36415

== ENCOUNTER 2022-07-31 13:43 | Emergency (ER) | payer BC ==
[~2022-07-31] VITALS: Ht 167 cm; Wt 78.0 kg
[~2022-07-31 13:43] MED LIST changes: +DULO30CA49; +SMZ-TMP
--- NOTE | 2022-07-31 14:40 | ED General ---
General Chief Complaint: Abdominal/GI Problems Stated Complaint: HEADACHE | NAUSEA | PRIOR ANEURYSM Nursing Triage Note: PT STATES HAVING A HX OF A AAA LAST IN MAY, WAS SENT TO [facility] AND FIXED, NAUSEA AND HEADACHE FOR 2 DAYS, LOWER ABD PAIN, ZOFRAN THIS A.M. NO VOMITING, TYLENOL SINUS THIS A.M. (RAMU FOWLER) History of Present Illness Date Seen by Provider: Jul 31, 2022 Time Seen by Provider: 14:18 Initial Comments 57 yo female with pmhx of AAA repair in May reports to the ED with chief complaint of nausea and MARION for 2 days. Pt reports that she is experiencing a frontal headache, sinus pressure, and said she woke up "completely wet in sweat" this am, chills/night sweats, lower abdominal tenderness. She also notes that she has had left calf pain and a "knot" above her left knee. Denies any CP, SOB, cough, vomiting, or diarrhea. Pt took Zofran yesterday and this morning which has helped with her nausea. Also took Tylenol sinus this morning. Pt has only eaten crackers this morning. Pt has not been flu or covid vaccinated. No other complaints. (RAMU FOWLER) Timing/Duration: 1-2 Days Severity: Moderate Modifying Factors: improves with Rest Associated Systoms: No Cough, No Fever/Chills; Headaches, Malaise, Nausea/Vomiting; No Shortness of Air (GUY RODRIGUEZ MD) Allergies and Home Medications Allergies Coded Allergies: codeine (Verified Allergy, Mild, Hives, 05/17/20) Patient Home Medication List Home Medication List Reviewed: Yes (RAMU FOWLER) Home Medication List Reviewed: Yes (GUY RODRIGUEZ MD) Duloxetine HCl (Duloxetine HCl) 30 Mg Capsule., (Reported) Entered as Reported by: JESSY JERNIGAN on 06/06/22500 [Smz-Tmp] , (Reported) Entered as Reported by: JESSY JERNIGAN on 06/06/22500 Review of Systems Review of Systems Constitutional: chills, diaphoresis; No dizziness, No fever; malaise EENTM: nose congestion; No ear discharge, No hearing loss, No ear pain, No hoarseness, No nose pain, No throat pain Respiratory: No cough, No dyspnea on exertion, No short of breath Cardiovascular: No chest pain, No palpitations, No syncope Gastrointestinal: RLQ, LLQ; No diarrhea, No melena; nausea; No vomiting Genitourinary: no symptoms reported Musculoskeletal: muscle cramps (left lateral calf and left thigh ) Skin: no symptoms reported Psychiatric/Neurological: No Symptoms Reported Hematologic/Lymphatic: No Symptoms Reported Immunological/Allergic: no symptoms reported (RAMU FOWLER) Constitutional: No fever; malaise Respiratory: No cough, No wheezing Gastrointestinal: nausea; No vomiting Genitourinary: No dysuria (GUY RODRIGUEZ MD) All Other Systems Reviewed Negative Unless Noted: Yes (GUY RODRIGUEZ MD) Past [id number]-[id number] Hx Patient Social History Tobacco Use?: No Substance use?: No Alcohol Use?: No (RAMU FOWLER) Immunizations Up To Date Tetanus Booster (TDap): Unknown PED Vaccines UTD: No First/Initial COVID19 Vaccinat: NA Second COVID19 Vaccination Donnie: NA Third COVID19 Vaccination Date: NA (RAMU FOWLER) Seasonal Allergies Seasonal Allergies: Yes (RAMU FOWLER) Past Medical History Surgery/Hospitalization HX: TUBAL, CHOLECYSTECTOMY, URETHERAL DILATION, HEADACHES, ASTHMA, DEPRESSION, AAA REPAIR Surgeries: Yes (urethral dilation) Abdominal, Gallbladder, Tubal Ligation Respiratory: Yes Asthma Currently Using CPAP: No Cardiac: Yes (large varicosity over the right knee) Neurological: No Reproductive Disorders: No Sexually Transmitted Disease: No Genitourinary: No Gastrointestinal: No Musculoskeletal: Yes Fractures Endocrine: No HEENT: No Cancer: No Psychosocial: No Integumentary: No Blood Disorders: No (RAMU FOWLER) Surgeries: Yes Vascular Surgery (Aortic aneurysm) (GUY RODRIGUEZ MD) Family Medical History Reviewed Nursing Family Hx (GUY RODRIGUEZ MD) Heart Disease, Cancer, Diabetes, Hypertension (RAMU FOWLER) Physical Exam Vital Signs Vital Signs - First Documented 07/31/22 14:08 Temp 36.3 Pulse 85 Resp 20 B/P (MAP) 168/95 (119) Pulse Ox 97 O2 Delivery Room Air (GUY RODRIGUEZ MD) Vital Signs Capillary Refill : Less Than 3 Seconds (RAMU FOWLER) Height, Weight, BMI Height: 5'6.00" Weight: 164lbs. 5.0oz. [id number]; 27.00 BMI Method:Estimated General Appearance: No Apparent Distress, WD/WN Eyes: Bilateral Eye PERRL, Bilateral Eye EOMI HEENT: PERRL/EOMI, Normal ENT Inspection, Pharynx Normal; No Pharyngeal Erythema; TM Abnormal (L) Neck: Full Range of Motion, Normal Inspection, Non Tender, Supple Respiratory: Chest Non Tender, Lungs Clear, Normal Breath Sounds, No Accessory Muscle Use, No Respiratory Distress Cardiovascular: Regular Rate, Rhythm, No Edema, No Gallop, No JVD, No Murmur, Normal Peripheral Pulses Gastrointestinal: Normal Bowel Sounds, No Organomegaly, No Pulsatile Mass, Soft, Distended (distended at baseline due to retained blood from AAA that could not be drained. ), Tenderness (mild tenderness to palpation in lower abdomen ) Back: Normal Inspection, No CVA Tenderness, No Vertebral Tenderness Extremity: Normal Capillary Refill, Normal Inspection, Normal Range of Motion, Non Tender, No Calf Tenderness, No Pedal Edema Neurologic/Psychiatric: Alert, Oriented x3, No Motor/Sensory Deficits, Normal Mood/Affect, chief of hospital medicine II-XII Norm as Tested Skin: Normal Color, Warm/Dry Lymphatic: No Adenopathy (RAMU FOWLER) General Appearance: No Apparent Distress, WD/WN Respiratory: Lungs Clear, Normal Breath Sounds Cardiovascular: Regular Rate, Rhythm, No Murmur Gastrointestinal: Normal Bowel Sounds, No Pulsatile Mass, Soft; No Guarding, No Rebound Neurologic/Psychiatric: Alert, Oriented x3 (GUY RODRIGUEZ MD) Progress/Results/Core Measures Suspected Sepsis SIRS Temperature: Pulse: 85 Respiratory Rate: 20 Blood Pressure 168 /95 Mean: 119 (RAMU FOWLER) Results/Orders Lab Results Laboratory Tests Test 07/31/22 14:20 07/31/22 14:58 07/31/22 15:50 Range/Units White Blood Count 6.9 4.3-11.0 10^3/uL Red Blood Count 5.02 3.80-5.11 10^6/uL Hemoglobin 14.9 11.5-16.0 g/dL Hematocrit 47 35-52 % Mean Corpuscular Volume 93 80-99 fL Mean Corpuscular Hemoglobin 30 25-34 pg Mean Corpuscular Hemoglobin Concent 32 32-36 g/dL Red Cell Distribution Width 13.9 10.0-14.5 % Platelet Count 315 130-400 10^3/uL Mean Platelet Volume 10.5 9.0-12.2 fL Immature Granulocyte % (Auto) 0 % Neutrophils (%) (Auto) 70 42-75 % Lymphocytes (%) (Auto) 22 12-44 % Monocytes (%) (Auto) 7 0-12 % Eosinophils (%) (Auto) 1 0-10 % Basophils (%) (Auto) 0 0-10 % Neutrophils # (Auto) 4.8 1.8-7.8 X 10^3 Lymphocytes # (Auto) 1.5 1.0-4.0 X 10^3 Monocytes # (Auto) 0.5 0.0-1.0 X 10^3 Eosinophils # (Auto) 0.1 0.0-0.3 10^3/uL Basophils # (Auto) 0.0 0.0-0.1 10^3/uL Immature Granulocyte # (Auto) 0.0 0.0-0.1 10^3/uL Sodium Level 140 135-145 MMOL/L Potassium Level 4.0 3.6-5.0 MMOL/L Chloride Level 101 98-107 MMOL/L Carbon Dioxide Level 26 21-32 MMOL/L Anion Gap 13 5-14 MMOL/L Blood Urea Nitrogen 11 7-18 MG/DL Creatinine 0.76 0.60-1.30 MG/DL Estimat Glomerular Filtration Rate 92 BUN/Creatinine Ratio 14 Glucose Level 100 70-105 MG/DL Calcium Level 10.1 8.5-10.1 MG/DL Corrected Calcium 8.5-10.1 MG/DL Total Bilirubin 0.5 0.1-1.0 MG/DL Aspartate Amino Transf (AST/SGOT) 42 H 5-34 U/L Alanine Aminotransferase (ALT/SGPT) 97 H 0-55 U/L Alkaline Phosphatase 77 40-136 U/L Total Protein 7.7 6.4-8.2 GM/DL Albumin 4.6 H 3.2-4.5 GM/DL Influenza Type A (RT-PCR) Not Detected Not Detecte Influenza Type B (RT-PCR) Not Detected Not Detecte SARS-CoV-2 RNA (RT-PCR) Not Detected Not Detecte Urine Color YELLOW Urine Clarity CLEAR Urine pH 5.5 5-9 Urine Specific [place] >=1.030 1.016-1.022 Urine Protein NEGATIVE NEGATIVE Urine Glucose (UA) NEGATIVE NEGATIVE Urine Ketones 1+ H NEGATIVE Urine Nitrite NEGATIVE NEGATIVE Urine Bilirubin NEGATIVE NEGATIVE Urine Urobilinogen 0.2 < = 1.0 MG/DL Urine Leukocyte Esterase NEGATIVE NEGATIVE Urine RBC (Auto) TRACE-I H NEGATIVE Urine RBC NONE /HPF Urine WBC RARE /HPF Urine Squamous Epithelial Cells 0-2 /HPF Urine Crystals NONE /LPF Urine Bacteria TRACE /HPF Urine Casts NONE /LPF Urine Mucus SMALL H /LPF Urine Culture Indicated NO (GUY RODRIGUEZ MD) My Orders Orders - GUY RODRIGUEZ MD Influenza A And B By Pcr (07/31/22 14:45) Covid 19 Inhouse Test (07/31/22 14:45) Ondansetron Oral Dissolve Tab (Zofran (07/31/22 14:45) Cbc With Automated Diff (07/31/22 15:47) Comprehensive Metabolic Panel (07/31/22 15:47) Ua Culture If Indicated (07/31/22 15:47) Lactated Ringers (Lr 1000 Ml Iv Solution (07/31/22 15:47) (GUY RODRIGUEZ MD) Vital Signs/I&O 07/31/22 14:08 Temp 36.3 Pulse 85 Resp 20 B/P (MAP) 168/95 (119) Pulse Ox 97 O2 Delivery Room Air (GUY RODRIGUEZ MD) Vital Signs/I&O Capillary Refill : Less Than 3 Seconds (RAMU FOWLER) Blood Pressure Mean: 119 Progress Note : Progress Note I have seen and evaluated the patient and agree with above except as indicated. I have directed the plan of care. Patient is here with 2 days of headache and then associated nausea. States that she just does not feel well. She was a little concerned about influenza or COVID but states that she never really gets sick. Complicated patient because of history of aortic aneurysm with stent repair from May of this year. She did have significant intra-abdominal bleeding. Her counts are apparently better after this as evaluated by her primary care physician and June. Overall just states that she does not feel well. Evaluation as above. Plan we will check influenza and COVID test. Ondansetron 4 mg p.o. ordered. Monitor patient. 1605: COVID and flu are negative. Patient still concerned about her blood counts and electrolytes that she had some electrolyte abnormality after the aneurysm and she is worried that her blood counts may be still low. We did offer evaluation of CBC and chemistry panel which she was very appreciative of. We will go ahead and get UA due to lower abdominal pain. Patient agreed to this as well. Monitor patient. Patient states that she has not been drinking well for the last couple of days due to the headache and nausea. We will go ahead and give a liter of LR. Monitor patient. 1713: Overall feeling better. Labs reviewed and are and grossly normal range without concerns. We did discuss the option of imaging and patient does not think she needs quite frequently I do not either at this point. She is comfortable going home. Discharged home with return precautions. Patient verbalized understanding instructions and agreement with plan. (GUY RODRIGUEZ MD) Departure Impression Primary Impression: Influenza-like illness Disposition: 01 HOME, SELF-CARE Condition: Improved Departure-Patient Inst. Decision time for Depature: 17:15 (GUY RODRIGUEZ MD) Referrals: TABBY GOVEA DO (PCP/Family) Primary Care Physician Patient Instructions: Flu, Adult (DC) Add. Discharge Instructions: All discharge instructions reviewed with patient and/or family. Voiced understanding. You may take Tylenol/acetaminophen 1000 mg every 6 hours as needed for fever or pain. You may use Afrin nasal spray or the generic, 12 hour relief, 2 sprays to each nostril twice daily for 3 days only and then stop. Do not use more than 3 days. Follow-up with your Dr. in a few days for recheck. Drink plenty of fluids and get plenty of rest. Return for worse pain, fever, vomiting, weakness, breathing problems or other concerns as needed. Follow-up with your doctor in a few days for recheck as needed. Copy Copies To 1: TABBY GOVEA ANISHA T Jul 31, 2022 14:40 GUY RODRIGUEZ MD Jul 31, 2022 16:04
[2022-07-31] MEDS ORDERED: ONDANSETRON 4 MG (ZOFRAN) ORAL DISSOLVE TAB SL STA (14:45)
[2022-07-31] MEDS ORDERED: LACTATED RINGERS 1,000 ML IV STA (15:47)
[2022-07-31 15:55] LABS: BASOPHILS % (AUTO) 0 % (0-10); EOSINOPHILS # (AUTO) 0.1 10^3/uL (0.0-0.3); EOSINOPHILS % (AUTO) 1 % (0-10); HEMATOCRIT 47 % (35-52); HEMOGLOBIN 14.9 g/dL (11.5-16.0); LYMPHOCYTES # (AUTO) 1.5 X 10^3 (1.0-4.0); LYMPHOCYTES % (AUTO) 22 % (12-44); MEAN CORPUSCULAR HEMOGLOBIN 30 pg (25-34); MEAN CORPUSCULAR HGB CONC 32 g/dL (32-36); MEAN CORPUSCULAR VOLUME 93 fL (80-99); MEAN PLATELET VOLUME 10.5 fL (9.0-12.2); MONOCYTES # (AUTO) 0.5 X 10^3 (0.0-1.0); MONOCYTES % (AUTO) 7 % (0-12); NEUTROPHILS # (AUTO) 4.8 X 10^3 (1.8-7.8); NEUTROPHILS % (AUTO) 70 % (42-75); PLATELET COUNT 315 10^3/uL (130-400); WHITE BLOOD COUNT 6.9 10^3/uL (4.3-11.0)
[2022-07-31 15:58] LABS: ALBUMIN 4.6 GM/DL (3.2-4.5); CHLORIDE 101 MMOL/L (98-107); SODIUM 140 MMOL/L (135-145)
[2022-07-31 16:00] LABS: CALCIUM 10.1 MG/DL (8.5-10.1)
[2022-07-31 16:01] LABS: GLUCOSE 100 MG/DL (70-105); TOTAL PROTEIN 7.7 GM/DL (6.4-8.2)
[2022-07-31 16:02] LABS: BILIRUBIN,TOTAL 0.5 MG/DL (0.1-1.0); CARBON DIOXIDE 26 MMOL/L (21-32)
[2022-07-31 16:04] LABS: ALKALINE PHOSPHATASE 77 U/L (40-136); CREATININE SERUM 0.76 MG/DL (0.60-1.30); GFR ESTIMATED 92
[2022-07-31 16:05] LABS: BUN/CREATININE RATIO 14
[2022-07-31 16:07] LABS: BILIRUBIN,URINE NEGATIVE (NEGATIVE); CLARITY,URINE CLEAR; COLOR,URINE YELLOW; GLUCOSE, URINE (UA) NEGATIVE (NEGATIVE); KETONES,URINE 1+ (NEGATIVE); LEUKOCYTE ESTERASE ,URINE NEGATIVE (NEGATIVE); NITRITE,URINE NEGATIVE (NEGATIVE); PH,URINE 5.5 (5-9); PROTEIN,URINE NEGATIVE (NEGATIVE)
[2022-07-31 16:07] LABS: ALANINE AMINOTRANSFERASE 97 U/L (0-55)
[2022-07-31 16:14] LABS: BACTERIA,URINE TRACE /HPF; WBC,URINE RARE /HPF
[2022-07-31 16:15] LABS: SQUAMOUS EPITHELIAL CELL,UR 0-2 /HPF
[2022-07-31 17:24] VITALS: BP 168/95
== END 2022-07-31 17:23 | disposition home or self-care (01) ==
LOC: EDUNIT# 13:43 → ER 13:46
DX: R51.9 Headache, unspecified (principal); R11.0 Nausea; R10.30 Lower abdominal pain, unspecified; E87.8 Other disorders of electrolyte and fluid balance, not elsewhere classified; Z88.5 Allergy status to narcotic agent; Z90.49 Acquired absence of other specified parts of digestive tract; Z28.310 Unvaccinated for COVID-19; Z20.822 Contact with and (suspected) exposure to COVID-19
CPT/HCPCS: 36415; 80053; 81000; 85025; 87636; 99283